=== PATIENT | female | born 1980 | race Two or more races ===

== ENCOUNTER 2022-07-19 22:48 | Inpatient (IN) | payer OTHER ==
[~2022-07-19] VITALS: Ht 170.2 cm; Wt 68.0 kg
[2022-07-19 23:32] VITALS: BP 134/81
--- NOTE | 2022-07-19 23:40 | NUR ---
TO LOBBY FOLLOWING TRIAGE
[2022-07-20] MEDS ORDERED: NACL 0.9% 1,000 ML IV SCH (02:25)
[2022-07-20] MEDS ORDERED: cefTRIAXone 1,000 MG in DEXT 5% MINI-BAG PLUS 50 ML IV ONE (02:25)
--- NOTE | 2022-07-20 02:30 | NUR ---
TO CT VIA W/C
--- NOTE | 2022-07-20 03:00 | NUR ---
Received pt in room from CT. Pt here in ED CC pain from gallstones . s/p leaving AMA from [facility] post admit to hosp.
--- NOTE | 2022-07-20 03:10 | NUR ---
LAB ATTEMPTED TO DRAW LABS W/ NO RESULTS, PT IS A HARD STICK. NURSE ATTEMPTED TO FIND AN IV SITE, NONE NOTED. Pt VERBALIZED SHE IS A HARD STICK.
--- NOTE | 2022-07-20 03:20 | NUR ---
LAB CALLED PT W/ CRITICAL VALUE POTASSIUM 2.7 Addendum: 07/20/22 at 0730 by [id number] MD NAJERA MADE AWARE OF CRITICAL LAB VALUE
[2022-07-20 03:24] LABS: APPEARANCE,URINE CLOUDY (CLEAR); BILIRUBIN,URINE NEGATIVE (NEGATIVE); BLOOD, URINE 3+ (NEGATIVE); COLOR,URINE YELLOW (YELLOW); LEUKOCYTE ESTERASE ,URINE 1+ (NEGATIVE); NITRITE, URINE NEGATIVE (NEGATIVE); UGLUCOSE NEGATIVE (NEGATIVE)
[2022-07-20 03:26] LABS: BASOPHILS # (AUTO) 0.1 K/uL (0.00-0.22); BASOPHILS % (AUTO) 0.6 % (0.0-2.0); EOSINOPHILS # (AUTO) 0.2 K/uL (0-0.4); EOSINOPHILS % (AUTO) 1.4 % (0.0-4.0); HEMATOCRIT 36.5 % (36-48); HEMOGLOBIN 12.4 g/dL (12.0-16.0); LYMPHOCYTES # (AUTO) 2.5 K/uL (2.5-16.5); LYMPHOCYTES % (AUTO) 17.5 % (20.5-51.1); MEAN CORPUSCULAR HEMOGLOBIN 32 pg (27-31); MEAN CORPUSCULAR HGB CONC 34 g/dL (33-37); MEAN CORPUSCULAR VOLUME 92.9 fL (80-94); MONOCYTES # (AUTO) 1.8 K/uL (0.8-1.0); MONOCYTES % (AUTO) 12.7 % (1.7-9.3); NEUTROPHILS # (AUTO) 9.6 K/uL (1.8-7.7); NEUTROPHILS % (AUTO) 67.8 % (42.2-75.2); PLATELET COUNT (AUTO) 376 K/uL (140-450); RED BLOOD CELL COUNT(AUTO) 3.92 MIL/uL (4.20-5.40); RED CELL DISTRIBUTION WIDTH 13.8 % (11.6-13.7); WHITE BLOOD COUNT (AUTO) 14.2 K/uL (4.8-10.8)
[2022-07-20 03:40] LABS: RBC,URINE 0-5 /HPF (0-5)
[2022-07-20 04:11] LABS: ALBUMIN 1.9 g/dL (3.4-5.0); ANION GAP 13.5 (8-16); ASPARTATE AMINOTRANSFERASE 22 U/L (15-37); CARBON DIOXIDE 25.2 mmol/L (21-32); CHLORIDE 100 mmol/L (98-107); CREATININE 1.4 mg/dL (0.6-1.3); GFR ARICAN-AMERICAN 53 mL/min (>90); GLUCOSE 95 mg/dL (74-106); SODIUM SERUM 136 mmol/L (136-145); TOTAL BILIRUBIN 1.2 mg/dL (0.0-1.0); UREA NITROGEN, BLOOD 19 mg/dL (7-18)
[2022-07-20 04:15] LABS: POTASSIUM 2.7 mmol/L (3.5-5.1)
[2022-07-20] MEDS ORDERED: POTASSIUM CHLORIDE 20% 40 MEQ/15 ML UDC PO ONE (04:20)
[2022-07-20] MEDS ORDERED: cefTRIAXone 1,000 MG VIAL ONE (04:40)
--- NOTE | 2022-07-20 04:49 | NUR ---
PT HAS C/O PAIN AT IV SITE. PT CRYING. IV SITE NOT INFILITRATED, LINE STILL FLUSHING. PT YELLING " PLEASE TAKE IT OUT. " DR. NAJERA NOTIFIED. Addendum: 07/20/22 at [address] [employer] [address] NAJERA, IV LINE TO BE LEFT IN PLACE FOR NOW.
--- NOTE | 2022-07-20 05:20 | NUR ---
NEW IV SITE INSERTION DOMNE BY DR. NAJERA VIA ULTRASOUNT TO Rt UPPER FA. LABS COLLECTED AND SENT FOR ANALYSIS. Pt IS A HARD STICK.
--- NOTE | 2022-07-20 07:30 | NUR ---
PT ENDORSED: REPORT TO AM RN.
--- NOTE | 2022-07-20 07:40 | NUR ---
Obtained CARLINE specimen, walked to lab. Handed to CPT Sky.
[2022-07-20] MEDS ORDERED: guaiFENesin DM 200/20 MG-10 ML 10 ML UDC PO PRN (08:35)
[2022-07-20] MEDS ORDERED: DOCUSATE SODIUM 100 MG GELCAP PO PRN (08:35)
[2022-07-20] MEDS ORDERED: ZOLPIDEM 5 MG TAB PO PRN (08:35)
[2022-07-20] MEDS ORDERED: ACETAMINOPHEN 325 MG TAB PO PRN (08:35)
[2022-07-20] MEDS ORDERED: HYDROcodone/APAP 7.5/325 MG 1 TAB PO PRN (08:35)
[2022-07-20] MEDS: PANTOPRAZOLE 40 MG TABEC PO SCH (09:00)
--- NOTE | 2022-07-20 09:16 | NUR ---
Patient will be admitted to care of Dr. Kahn. Admited to KIAN. Will go to room 121B. Belongings list completed. Report to KIAN Ocampo RN.
--- NOTE | 2022-07-20 09:16 | NUR ---
REPORT GIVEN TO NIYAH JONES MST 121B.
--- NOTE | 2022-07-20 09:30 | NUR ---
RECEIVED REPORT FROM ER NURSE KIRA. PT A/O X4. NO SOB NOTED. RR EVEN & UNLABORED. ON RA. SATURNINO #20. ATTEMPTED FLUSH WITH NO PATENT IV. ON REGULAR DIET. LAST BM ON 07/18. ORIENTED PT TO UNIT. NEEDS ALL MET AT THIS TIME. ALL SAFETY MEASURES IN PLACE.
[2022-07-20 10:00] VITALS: BP 123/88
--- NOTE | 2022-07-20 10:00 | NUR ---
PT STATES SHE IS A "HARD STICK" AND THAT AN "ULTRASOUND" WAS USED TO FIND HER IV SITE. EXPLAINED TO PT THAT IV ISN'T WORKING AND THAT A NEW IV START IS NEEDED. UNSUCCESSFUL IV START. CONTACTED ER TO START A NEW IV SITE. ER VERBALIZED THEY WILL SEND SOMEONE. AWAITING ER FOR IV RESTART.
[2022-07-20] MEDS: MORPHINE SULFATE 2 MG/ML SYR IVP PRN ×2 (10:25→17:44)
--- NOTE | 2022-07-20 10:25 | NUR ---
PRN MORPHINE GIVEN FOR PAIN 8/10 ACHING LOWER BACK PAIN, NONRADIATING.
[2022-07-20 10:42] LABS: MAGNESIUM 1.4 mg/dL (1.8-2.4); PHOSPHORUS 3.8 mg/dL (2.5-4.9)
[2022-07-20 11:00] LABS: PROTHROMBIN TIME 10.3 secs (10.8-13.4)
--- NOTE | 2022-07-20 11:00 | NUR ---
ER NURSE AT BEDSIDE AND STARTED R THUMB #22. WILL DISCONTINUE SATURNINO #20.
[2022-07-20] MEDS: NACL 0.9% 1,000 ML IV SCH ×2 (12:00→18:39)
[2022-07-20] MEDS: LEVOFLOXACIN 750 MG/D5W PREMIX 150 ML IV SCH (12:07)
[2022-07-20] MEDS: ONDANSETRON 4 MG/2 ML VIAL IM/IVP PRN ×2 (12:58→18:42)
--- NOTE | 2022-07-20 12:58 | NUR ---
PRN ZOFRAN GIVEN. PT C/O NAUSEA. OBSERVE WITH LITTLE APPETITE.
[2022-07-20 16:00] VITALS: BP 97/63
--- NOTE | 2022-07-20 17:45 | NUR ---
PRN PAIN MED GIVEN. PT IS AFEBRILE AND STATES SHE "I FEEL A LOT BETTER". R UA #20 IV DISCONTINUED. R THUMB #22 IVF INFUSING. HOB ELEVATED. AT BEDSIDE. ALL NEEDS MET AT THIS TIME. ALL SAFETY MEASURES IN PLACE.
[2022-07-20] MEDS: TAMSULOSIN 0.4 MG CAP PO SCH (18:39)
--- NOTE | 2022-07-20 18:45 | NUR ---
PRN ZOFRAN GIVEN FOR NAUSEA. RR EVEN & UNLABORED. ON RA. HOB ELEVATED. IN NO ACUTE DISTRESS. NEEDS ALL MET. PT STABLE. ALL SAFETY MEASURES IN PLACE. AT BEDSIDE. DOOR AND LIGHTS CLOSED PER PT REQUEST.
--- NOTE | 2022-07-20 19:33 | NUR ---
REPORT GIVEN TO NIGHTSHIFT NURSEYUSEF FOR CONTINUITY OF CARE.
--- NOTE | 2022-07-20 19:34 | NUR ---
RECEIVED REPORT FROM MORNING SHIFT NURSE ROBERT. PATIENT AWAKE ALERT ORIENTED X4, ON ROOM AIR. AMBULATORY. NO S/S OF RESPIRATORY DISTRESS. IV ACCESS ON THE RIGHT HAND GAUGE 22 INFUSING NS AT 100 MLS/HR. NO COMPLAINTS OF PAIN AT THIS TIME. ALL SAFETY MEASURES IN PLACE. CALL LIGHT WITHIN REACH. AT BEDSIDE.
[2022-07-20 20:00] VITALS: BP 155/97
[2022-07-20 22:23] LABS: ANION GAP 10.2 (8-16); CARBON DIOXIDE 29.6 mmol/L (21-32)
[2022-07-20 22:29] LABS: POTASSIUM 2.8 mmol/L (3.5-5.1)
[2022-07-21] MEDS: NACL 0.9% 1,000 ML IV SCH ×3 (00:32→15:27)
[2022-07-21] MEDS: MORPHINE SULFATE 2 MG/ML SYR IVP PRN ×3 (00:33→17:35)
[2022-07-21] MEDS ORDERED: POTASSIUM CHLORIDE 10 MEQ TABER PO ONE (01:00)
--- NOTE | 2022-07-21 01:23 | NUR ---
PATIENT AWAKE, BREATHING NORMAL WITH SYMMETRICAL RISE AND FALL OF THE CHEST. CALL LIGHT WITHIN REACH.
[2022-07-21 04:00] VITALS: BP 116/80
--- NOTE | 2022-07-21 04:30 | NUR ---
ANSWERED CALL LIGHT, NEEDS MET.
[2022-07-21 05:54] LABS: HEMATOCRIT 31.2 % (36-48); HEMOGLOBIN 10.8 g/dL (12.0-16.0); MEAN CORPUSCULAR HEMOGLOBIN 32 pg (27-31); MEAN CORPUSCULAR HGB CONC 35 g/dL (33-37); MEAN CORPUSCULAR VOLUME 91.2 fL (80-94); PLATELET COUNT (AUTO) 326 K/uL (140-450); RED BLOOD CELL COUNT(AUTO) 3.42 MIL/uL (4.20-5.40); RED CELL DISTRIBUTION WIDTH 13.9 % (11.6-13.7); WHITE BLOOD COUNT (AUTO) 12.7 K/uL (4.8-10.8)
[2022-07-21 05:55] LABS: ANION GAP 12.6 (8-16); CARBON DIOXIDE 24.6 mmol/L (21-32); POTASSIUM 3.2 mmol/L (3.5-5.1)
--- NOTE | 2022-07-21 07:33 | NUR ---
ENDORSED TO DAY SHIFT NURSE FOR CONTINUITY OF CARE.
[2022-07-21] MEDS: TAMSULOSIN 0.4 MG CAP PO SCH (09:07)
[2022-07-21] MEDS: LEVOFLOXACIN 750 MG/D5W PREMIX 150 ML IV SCH (09:07)
[2022-07-21] MEDS: PANTOPRAZOLE 40 MG TABEC PO SCH (09:07)
[2022-07-21] MEDS: NICOTINE TRANSD SYS 21 MG/24 HR PATCH TD SCH (09:07)
[2022-07-21 10:41] LABS: LYMPHOCYTES % (MANUAL) 25 % (20-46); METAMYELOCYTES % 1 % (0-0); MONOCYTES % (MANUAL) 22 % (5-12); MYELOCYTES % 1 % (0-0)
[2022-07-21 11:02] VITALS: BP 122/75
[2022-07-21 16:24] VITALS: BP 129/79
--- NOTE | 2022-07-21 19:35 | NUR ---
RECEIVED PT FROM AM NURSE FOR CONTINUITY OF CARE.PT IS STABLE
[2022-07-21 20:00] VITALS: BP 127/78
[2022-07-22] MEDS: NACL 0.9% 1,000 ML IV SCH ×3 (00:44→21:52)
--- NOTE | 2022-07-22 01:00 | NUR ---
PATIENT'S PIV CAME OFF. ATTEMPTED TO INSERT IV BUT NO SUCCESS, WILL TRY AGAIN LATER
[2022-07-22] MEDS: POTASSIUM CHLORIDE 10 MEQ TABER PO PRN ×2 (03:27→17:06)
[2022-07-22 04:00] VITALS: BP 121/70
--- NOTE | 2022-07-22 04:00 | NUR ---
WAS ABLE TO SUCCESSFULLY INSERTED AN IV ON LEFT HAND,INTACT AND PATENT
[2022-07-22] MEDS: MORPHINE SULFATE 2 MG/ML SYR IVP PRN ×3 (04:43→17:07)
--- NOTE | 2022-07-22 07:25 | NUR ---
ENDORSED PT TO AM NURSE FOR CONTINUITY OF CARE.PT IS STABLE
[2022-07-22 08:00] VITALS: BP 146/81
[2022-07-22] MEDS: PANTOPRAZOLE 40 MG TABEC PO SCH (08:56)
[2022-07-22] MEDS: NICOTINE TRANSD SYS 21 MG/24 HR PATCH TD SCH (08:56)
[2022-07-22] MEDS: TAMSULOSIN 0.4 MG CAP PO SCH (08:56)
[2022-07-22] MEDS: LEVOFLOXACIN 750 MG/D5W PREMIX 150 ML IV SCH (08:58)
[2022-07-22] MEDS ORDERED: POTASSIUM CHLORIDE 40 MEQ in NACL 0.9% 250 ML IV SCH (09:30)
[2022-07-22] MEDS: POLYETHYLENE GLYCOL 17 GM/PKT PO SCH ×2 (09:45→20:22)
[2022-07-22] MEDS ORDERED: LACTULOSE 20 GM/30 ML UDC PO SCH (10:00)
--- NOTE | 2022-07-22 10:20 | NUR ---
PATIENT HAS BEEN SCREENED AND CATEGORIZED MODERATE NUTRITION RISK. PATIENT WILL BE SEEN WITHIN 3-5 DAYS OF ADMISSION. 07/20/22-07/25/[address]
[2022-07-22] MEDS: KCL 20 MEQ/WATER INJ PREMIX 100 ML IV SCH ×2 (10:53→13:00)
[2022-07-22 15:14] LABS: BASOPHILS # (AUTO) 0.1 K/uL (0.00-0.22); BASOPHILS % (AUTO) 0.7 % (0.0-2.0); EOSINOPHILS # (AUTO) 0.2 K/uL (0-0.4); EOSINOPHILS % (AUTO) 1.1 % (0.0-4.0); HEMATOCRIT 36.1 % (36-48); HEMOGLOBIN 12.3 g/dL (12.0-16.0); LYMPHOCYTES # (AUTO) 3.7 K/uL (2.5-16.5); LYMPHOCYTES % (AUTO) 25.9 % (20.5-51.1); MEAN CORPUSCULAR HEMOGLOBIN 32 pg (27-31); MEAN CORPUSCULAR HGB CONC 34 g/dL (33-37); MEAN CORPUSCULAR VOLUME 92.5 fL (80-94); MONOCYTES # (AUTO) 2.2 K/uL (0.8-1.0); MONOCYTES % (AUTO) 15.4 % (1.7-9.3); NEUTROPHILS # (AUTO) 8.1 K/uL (1.8-7.7); NEUTROPHILS % (AUTO) 56.9 % (42.2-75.2); PLATELET COUNT (AUTO) 403 K/uL (140-450); RED CELL DISTRIBUTION WIDTH 14.1 % (11.6-13.7); WHITE BLOOD COUNT (AUTO) 14.2 K/uL (4.8-10.8)
[2022-07-22 15:46] LABS: ANION GAP 10.4 (8-16); CARBON DIOXIDE 30.9 mmol/L (21-32); CREATININE 0.9 mg/dL (0.6-1.3); POTASSIUM 3.3 mmol/L (3.5-5.1)
[2022-07-22 16:00] VITALS: BP 129/88
--- NOTE | 2022-07-22 19:30 | NUR ---
RECEIVED PT FROM AM NURSE FOR CONTINUITY OF CARE. PT IS STABLE
[2022-07-22 20:00] VITALS: BP 124/80
[2022-07-23] MEDS: MORPHINE SULFATE 2 MG/ML SYR IVP PRN (01:46)
--- NOTE | 2022-07-23 02:00 | NUR ---
PATIENT ASLEEP,BREATHING EVEN AND UNLABORED,NO DISTRESS NOTED
[2022-07-23 04:00] VITALS: BP 128/84
[2022-07-23 05:45] LABS: BASOPHILS # (AUTO) 0.1 K/uL (0.00-0.22); BASOPHILS % (AUTO) 0.5 % (0.0-2.0); EOSINOPHILS # (AUTO) 0.3 K/uL (0-0.4); EOSINOPHILS % (AUTO) 1.9 % (0.0-4.0); HEMATOCRIT 34.5 % (36-48); HEMOGLOBIN 11.7 g/dL (12.0-16.0); LYMPHOCYTES # (AUTO) 4.2 K/uL (2.5-16.5); LYMPHOCYTES % (AUTO) 28.7 % (20.5-51.1); MEAN CORPUSCULAR HEMOGLOBIN 31 pg (27-31); MEAN CORPUSCULAR HGB CONC 34 g/dL (33-37); MONOCYTES # (AUTO) 1.9 K/uL (0.8-1.0); MONOCYTES % (AUTO) 13.4 % (1.7-9.3); NEUTROPHILS # (AUTO) 8.1 K/uL (1.8-7.7); NEUTROPHILS % (AUTO) 55.5 % (42.2-75.2); PLATELET COUNT (AUTO) 445 K/uL (140-450); RED BLOOD CELL COUNT(AUTO) 3.75 MIL/uL (4.20-5.40); RED CELL DISTRIBUTION WIDTH 13.9 % (11.6-13.7); WHITE BLOOD COUNT (AUTO) 14.5 K/uL (4.8-10.8)
[2022-07-23 06:03] LABS: ANION GAP 11.7 (8-16); CARBON DIOXIDE 28.1 mmol/L (21-32); CREATININE 0.8 mg/dL (0.6-1.3); POTASSIUM 3.8 mmol/L (3.5-5.1)
[2022-07-23] MEDS: NACL 0.9% 1,000 ML IV SCH (06:28)
--- NOTE | 2022-07-23 07:18 | NUR ---
ENDORSED PT TO AM NURSE FOR CONTINUITY OF CARE. PT IS STABLE
[2022-07-23 08:00] VITALS: BP 137/86
[2022-07-23] MEDS: TAMSULOSIN 0.4 MG CAP PO SCH (08:30)
[2022-07-23] MEDS: NICOTINE TRANSD SYS 21 MG/24 HR PATCH TD SCH (09:00)
[2022-07-23] MEDS: PANTOPRAZOLE 40 MG TABEC PO SCH (09:00)
[2022-07-23] MEDS: POLYETHYLENE GLYCOL 17 GM/PKT PO SCH (09:00)
[2022-07-23] MEDS: LEVOFLOXACIN 750 MG/D5W PREMIX 150 ML IV SCH (10:30)
--- NOTE | 2022-07-23 10:40 | NUR ---
FOUND PT WITH ARM BLEEDING, STATED SHE REMOVED HER IV AND WANTS TO LEAVE AMA. DR. NICOLE NOTIFIED AND AWARE. NOTIFIED PRIMARY RN JOHN.
--- NOTE | 2022-07-23 10:41 | NUR ---
PT SIGNED FOR AMA. PT ALREADY PULLED OUT SALINE LOCK. BELONGINGS IN PT'S POSSESSION. PT TO CHANGE INTO HOME CLOTHES AND LEAVE FACILITY.
== END 2022-07-23 11:04 | disposition left against medical advice (07) | DRG 720 ==
LOC: MED 22:48 → MTU 07-20 08:20
PROVIDERS: ADMIT Student in an Organized Health Care Education/Training Program; ATTEND Student in an Organized Health Care Education/Training Program
PROC: 05HY33Z Insertion of Infusion Device into Upper Vein, Percutaneous Approach (ICD-10-PCS; principal; 2022-07-20)
DX: A41.9 Sepsis, unspecified organism (principal); N17.0 Acute kidney failure with tubular necrosis; E43 Unspecified severe protein-calorie malnutrition; N12 Tubulo-interstitial nephritis, not specified as acute or chronic; E83.42 Hypomagnesemia; F17.200 Nicotine dependence, unspecified, uncomplicated; E87.6 Hypokalemia; E80.6 Other disorders of bilirubin metabolism; K59.00 Constipation, unspecified; Z20.822 Contact with and (suspected) exposure to COVID-19; Z68.23 Body mass index [BMI] 23.0-23.9, adult
CPT/HCPCS: 36415; 71045; 76770; 80048; 80053; 81001; 83605; 83690; 83735; 84100; 84484; 85025; 85610; 85730; 87040; 87081; 87086; 93005; 96365; 96366; 99285; J0696; J1956; J2270; J2405; J3480; Q0092

== ENCOUNTER 2023-02-08 03:35 | Emergency (ER) | payer OTHER ==
[~2023-02-08] VITALS: Ht 170.2 cm; Wt 65.8 kg
[2023-02-08 03:50] VITALS: BP 139/94
--- NOTE | 2023-02-08 03:52 | NUR ---
pt to marcelina
[2023-02-08] MEDS ORDERED: ceFAZolin 1,000 MG VIAL IM ONE (04:05)
[2023-02-08] MEDS ORDERED: CEPH-588 PO (04:14)
[2023-02-08] MEDS ORDERED: LIDOCAINE MPF 1% 5 ML ONE (04:14)
[2023-02-08] MEDS ORDERED: NAPR-54 PO (04:16)
[2023-02-08 04:20] VITALS: BP 139/94
--- NOTE | 2023-02-08 04:20 | NUR ---
D/C BY . PRESCRIBED KEFLEX AND NAPROSYN
[2023-02-08] MEDS ORDERED: BEN50 PO (04:23)
== END 2023-02-08 04:20 | disposition home or self-care (01) ==
LOC: MED 03:35
DX: L03.011 Cellulitis of right finger (principal); L03.123 Acute lymphangitis of right upper limb; Z79.899 Other long term (current) drug therapy
CPT/HCPCS: 96372; 99283; J0690; J2001